=== PATIENT | female | born 1955 | race Two or more races ===

== ENCOUNTER 2018-11-01 13:15 | Day surgery (SDC) | payer BC ==
[2018-11-01] MEDS ORDERED: PROPOFOL 20 ML (16:23)
== END 2018-11-01 17:05 | disposition home or self-care (01) ==
LOC: GIL 13:15
DX: K29.50 Unspecified chronic gastritis without bleeding (principal); K21.0 Gastro-esophageal reflux disease with esophagitis; K44.9 Diaphragmatic hernia without obstruction or gangrene
CPT/HCPCS: 43239; 88305; 88312; 88313